=== PATIENT | female | born 1985 | race American Indian/Alaskan Native ===

== ENCOUNTER 2019-07-05 11:59 | Outpatient (CLI) | payer SELFPAY ==
[2019-07-05 12:24] VITALS: BP 106/57
[2019-07-05 14:08] LABS: Bilirubin,Urine NEG (Negative); Blood,Urine NEG (Negative); Color,Urine Yellow (Yellow); Mucus,Urine FEW /HPF; Protein,Urine <15 mg/dL mg/dL (Negative); Urobilinogen,Urine < 2.0 mg/dL (<2.0)
[2019-07-05 14:21] LABS: Amphetamine Screen,Urine PRESUMPTIVE NEGATIVE; Benzodiazepines Screen,Urine PRESUMPTIVE NEGATIVE; Cocaine Screen,Urine PRESUMPTIVE NEGATIVE; Methadone Screen,Urine PRESUMPTIVE NEGATIVE; Opiate Screen,Urine PRESUMPTIVE NEGATIVE
[2019-07-05 14:33] LABS: Cannabinoid Screen,Urine PRESUMPTIVE POSITIVE
--- NOTE | 2019-07-05 16:41 | Ultrasound Report ---
ULTRASOUND OBSTETRIC INDICATION: Evaluate gestational age. Clinical Gestational Age (GA): 21 weeks, 3 days TECHNIQUE: Transabdominal. COMPARISON: None available. FINDINGS: There is a single intrauterine . Biparietal Diameter = 4.95 cm = 21 weeks, 0 day(s). Head Circumference = 18.48 cm = 20 weeks, 6 day(s). Abdominal Circumference = 16.34 cm = 21 weeks, 3 day(s). Femur Length = 3.56 cm = 21 weeks, 2 day(s). Average Ultrasound Age (AUA) = 21 weeks, 1 day(s). Heart Rate: 157 beats per minute. Estimated Weight in grams (if calculated): 412 Estimated Weight Growth Percentile (if calculated): 36 Position: cephalic. Cervix: closed. Length in cm (if measured): 3.7 Placenta: anterior and free of the os. Amniotic Fluid Volume: normal Maternal Adnexa: No significant abnormality. IMPRESSION: 1. Single, living intrauterine with estimated sonographic age of 21 weeks, 1 day(s). 2. No significant sonographic abnormality. Signer Name: Mino Silva MD Signed: 07/05/2019 4:36 PM Workstation Name: [id number]
== END 2019-07-05 15:14 | disposition home or self-care (01) ==
LOC: TRG 11:59
PROVIDERS: ATTEND Obstetrics & Gynecology
DX: O47.02 False labor before 37 completed weeks of gestation, second trimester (principal); Z3A.21 21 weeks gestation of pregnancy
CPT/HCPCS: 76805; 80307; 81001; 87086